=== PATIENT | male | born 1960 | race Two or more races ===

== ENCOUNTER → 2017-10-12 | Outpatient (CLI) | payer OTHER | LOC: CIMAGING 16:17 | PROVIDERS: ATTEND Family Medicine | DX: R07.9 Chest pain, unspecified (principal); M25.531 Pain in right wrist | CPT/HCPCS: 71046-PO; 73100-PO ==

== ENCOUNTER → 2017-12-27 | Outpatient (CLI) | payer OTHER | LOC: FIMAGING 07:55 | PROVIDERS: ATTEND Family Medicine | DX: M25.531 Pain in right wrist (principal); V89.2XXA Person injured in unspecified motor-vehicle accident, traffic, initial encounter; M87.9 Osteonecrosis, unspecified; S63.521A Sprain of radiocarpal joint of right wrist, initial encounter; T14.8XXA Other injury of unspecified body region, initial encounter; M77.8 Other enthesopathies, not elsewhere classified ==

== ENCOUNTER 2018-03-04 05:25 | Day surgery (SDC) | payer OTHER ==
[2018-03-04] MEDS ORDERED: LR 1,000 ML IV ONE (05:56)
[2018-03-04] MEDS ORDERED: ceFAZolin 2 GM in NS 100 ML IV ONE (06:53)
--- NOTE | 2018-03-04 06:54 | PDHPUP ---
History & Physical Update H&P update statement: This history and physical update is based on an assessment of the patient which was completed after admission or registration (within 24 hours), but prior to the surgery/procedure. H&P update: H&P reviewed & patient examined, no change in patient's condition since H&P completed
[2018-03-04] MEDS ORDERED: BUPIVACAINE 0.25% 30 ML SDV ONE (06:57)
[2018-03-04] MEDS ORDERED: LIDOCAINE 1% 300 MG/30 ML SDV ONE (06:57)
--- NOTE | 2018-03-04 06:57 | POSTOPPROG ---
Post Op Note Date of Operation: 03/04/18 Surgeon: Tyler Basurto Auto Damage Appraiser: None Anesthesiologist: Dr. Lugo Anesthesia: GET(General Endotracheal) Pre-op Diagnosis: Right wrist Kienbock's disease, right wrist TFCC tear Post-op Diagnosis: Right wrist Kienbock's disease, right wrist TFCC tear Indication: Right wrist Kienbock's disease, right wrist TFCC tear Procedure: Right wrist arthroscopy w/ TFCC debridement, right radius shortening Inf/Abcess present in the surg proc area at time of surgery?: No EBL: Minimal Complications: None
[2018-03-04] MEDS ORDERED: ceFAZolin 2 GM/DEXTROSE 100 ML IV ONE (07:00)
--- NOTE | 2018-03-04 07:02 | PDANEPAE ---
ANE Past Medical History - Cardiovascular History Hx Hypertension: Yes - Pulmonary History Hx Sleep Apnea: No - Endocrine History Hx Diabetes: Yes ANE Review of Systems Review of Systems: ANE Patient History - Allergies Allergies/Adverse Reactions: No Known Allergies Allergy (Verified 05/12/12 17:43) - Home Medications Home Medications: Lisinopril [Zestril 20 mg (RX)] 20 mg PO DAILY 05/12/12 [Last Taken 03/03/18] metFORMIN HCL [Glucophage 500 mg (RX)] 500 mg PO 05/12/12 [Last Taken 03/03/18 20:00] - NPO status NPO Since - Liquids (Date): 03/03/18 NPO Since - Liquids (Time): 21:30 NPO Since - Solids (Date): 03/03/18 NPO Since - Solids (Time): 18:00 ANE Labs/Vital Signs - Vital Signs Blood Pressure: 152/84 Heart Rate: 103 Respiratory Rate: 16 O2 Sat (%): 96 Height: 154.94 cm Weight: 66.224 kg ANE Physical Exam - Airway Mallampati Score: Class 2 - ASA Status ASA Status: III ANE Anesthesia Plan Anesthesia Plan: GA w LMA
[2018-03-04] MEDS ORDERED: MIDAZOLAM 2 MG/2 ML VIAL ONE (07:10)
[2018-03-04] MEDS ORDERED: METOCLOPRAMIDE 10 MG/2 ML VIAL ONE (07:11)
[2018-03-04] MEDS ORDERED: fentaNYL 100 MCG/2 ML INJ ONE ×2 (07:11→10:19)
[2018-03-04] MEDS ORDERED: PROPOFOL 200 MG/20 ML VIAL ONE (07:11)
[2018-03-04] MEDS ORDERED: LIDOCAINE 2% JELLY 5 ML TUBE ONE (07:12)
[2018-03-04] MEDS ORDERED: ONDANSETRON 4 MG/2 ML VIAL ONE (07:12)
[2018-03-04] MEDS ORDERED: PHENYLEPHRINE HCL 100 MCG/ML SYR ONE (07:56)
[2018-03-04] MEDS ORDERED: NALOXONE HCL 0.4 MG/ML INJ IVP PRN (10:10)
[2018-03-04] MEDS ORDERED: LR 500 ML IV PRN (10:10)
--- NOTE | 2018-03-04 10:11 | POSTANESTH ---
Post Anesthetic Evaluation Cardiovascular Status: Similar to Pre-Op Cond Respiratory Status: Normal, Stable Level of Consciousness/Mental Status: Can Participate in Eval Pain Control: Adequate, Prn Tx Ordered Nausea/Vomiting Control: Adequate, Prn Tx Ordered Complications Possibly Related to Anesthesia: None Noted
[2018-03-04] MEDS: fentaNYL 100 MCG/2 ML INJ IVP PRN ×2 (10:22→10:28)
[2018-03-04] MEDS ORDERED: oxyCODONE IR 5 MG TAB PO ONE ×2 (11:00→15:15)
[2018-03-04] MEDS ORDERED: LIDOCAINE 2% 5 ML SDV ONE (15:42)
[2018-03-04] MEDS ORDERED: ROPIVACAINE HCL 150 MG/30 ML INJ ONE (15:42)
[2018-03-04 16:40] VITALS: BP 165/100
--- NOTE | 2018-03-04 21:45 | GOP ---
[f rep st] OPERATIVE REPORT PATIENT: KENA SOARES DATE OF SERVICE: 03/04/18 PATIENT DATE OF : 1960 SURGEON: Tyler Basurto M.D. CUTTING MACHINE OFFBEARER: None ANESTHESIA: General / Regional anesthesia PRE-OPERATIVE DIAGNOSES: Right wrist Kienbocks disease (ICD-10 code M93.1 -- Kienbocks disease of adults) Right wrist triangular fibrocartilage complex tear (ICD-10 code M24.139 Triangular fibrocartilage complex tear) POST-OPERATIVE DIAGNOSES: Right wrist Kienbocks disease (ICD-10 code M93.1 -- Kienbocks disease of adults) Right wrist triangular fibrocartilage complex tear (ICD-10 code M24.139 Triangular fibrocartilage complex tear) Right wrist arthritis (ICD-10 code M19.131 Right wrist post-traumatic arthritis ) OPERATIVE PROCEDURES: CPT code 04198 -- Right wrist arthroscopy with triangular fibrocartilage complex debridement CPT code 64370 -- Right wrist arthroscopy with complete synovectomy CPT code 16442 Right distal radius osteotomy CPT code 96951 Right distal radius osteoplasty shortening CPT code 78759 Right distal radius open reduction and internal fixation CPT code 02099 Right wrist anterior interosseous nerve neurectomy CPT code 72813 Right wrist brachioradialis tenotomy CPT code 35109 - Fluoroscopy by surgeon, up to one hour CPT code 47177 - Application of a short-arm splint Modifier 47 - regional anesthesia by surgeon EBL: 3cc COMPLICATIONS: None TOURNIQUET TIME: 120 minutes at 250 mmHg IMPLANTS: Synthes 2.4mm/2.7mm volar variable angle LCP distal radius plate, four-hole shaft, wide, with 2.4mm non-locking and locking screws and 2.7mm non- locking screws BRIEF CLINICAL NOTE: This is a very pleasant 57 year old male with a significant history for a right wrist TFCC tear as well as right wrist Kienbock s disease in the setting of ulnar negative variance. As such, I discussed the risks, benefits, alternatives, and complications associated with both non- operative (specifically, observation, NSAIDs, bracing, injection) and operative (specifically, right wrist arthroscopy with TFCC debridement and/or repair and right distal radius osteotomy with osteoplasty shortening) forms of treatment. The patient fully understood the risks, benefits, alternatives, and complications associated with both forms of treatment and wished to proceed with operative intervention as outlined above. The patient has signed the informed consent form for surgery. OPERATIVE NOTE: On the day of surgery, all of the patients questions were answered. The patient was then transferred from the pre-operative area into the operating room and a formal, Time-Out procedure was performed. The patient was identified by name, medical record number, social security number, and date of . In addition, the patients right upper extremity was identified as the correct portion of the patients body for surgery with the patients right wrist being identified as the correct portion of that extremity for surgery. The anesthesia team administered pre-operative antibiotics for prophylaxis. The brachium was then padded with webril and tourniquet was applied. The right upper extremity was then prepped and draped in the normal sterile fashion. The right upper extremity was then placed into the [facility] wrist traction tower with padding overlying the ulnar nerve. Finger traps were applied to the index and long fingers and 12 pounds of traction was applied across the wrist. A sterile marking pen was then utilized to [place] out standard 3-4 and 6R radio- carpal portals. In addition, a volar longitudinal incision was marked overlying the flexor carpi radialis tendon extending to the volar wrist flexion crease. An Esmarch was then utilized to exsanguinate the upper extremity and the tourniquet was inflated to 250 mmHg. An 18-gauge needle was utilized to localize the radiocarpal joint through the 3- 4 portal. The joint was insufflated with several milliliters of sterile normal saline. A number 11-blade was then used to incise the skin only. A small hemostat was utilized to spread through the subcutaneous tissues and through the capsule to enter the radiocarpal space. The blunt obturator was then inserted with the overlying sheath. The blunt obturator was then removed and the 2.3-mm arthroscope was advanced through the sheath. The 6R portal was established with an outside-in technique and a diagnostic arthroscopy was performed in the radiocarpal space. The following structures were visualized and assessed arthroscopically: Radiocarpal Space Radioscapholunate: intact Short radiolunate: intact Long radiolunate: intact Radioscaphocapitate: intact Radial styloid and scaphoid facet of the distal radius: intact Intramembranous SLIL: intact Dorsal SLIL: intact Lunate facet of the distal radius: intact Ulnolunate: intact Ulnotriquetral: intact Triangular fibrocartilage complex: partial thickness central zone tear and partial thickness dorsal peripheral tear Lunate articular surface: full thickness cartilage defect along ulnar border measuring 3mm by 6mm Lunotriquetral interosseous ligament: intact Following completion of the diagnostic arthroscopy, a complete synovectomy of the wrist was performed with the 2.5mm aggressive shaver. Attention was then turned to the TFCC. The 2.5-mm shaver was utilized to debride the torn portions of the TFCC. Following this, a 1-mm 90-degree probe was utilized to test the periphery of the TFCC. The probe could not be advanced underneath the TFCC along its periphery. In addition, the trampoline test was negative. As such, the 2.3mm Mitek Vapr wedge electrode was utilized to perform thermal shrinkage of the debrided portions of the TFCC. The arthroscope and all instruments were then removed from the joint. The arthroscopy portal wounds were then copiously irrigated with sterile normal saline and the skin was re- approximated with 4-0 Monocryl. The right upper extremity was then taken out of the wrist traction tower and attention was turned to the distal radius. A #15 blade was then used to incise the skin overlying the flexor carpi radialis tendon. The flexor carpi radialis tendon, the median nerve, the radial artery, and the superficial branch of the radial sensory nerve were identified and protected. The flexor carpi radialis tendon sheath was then incised longitudinally and the tendon was retracted in an ulnar direction. The subsheath of the flexor carpi radialis tendon was then incised longitudinally to expose the flexor pollicus longus muscle belly and the pronator quadratus. The pronator quadratus was then released off of the radial margin of the volar distal radius. Next, the brachioradialis tendon was released off of the radial styloid (tenotomy). The pronator quadratus was then retracted in an ulnar direction to expose the volar surface of the distal radius. The anterior interosseous nerve was identified as it terminated in the pronator quadratus and a 1cm segment was excised utilizing bipolar cautery (anterior interosseous nerve neurectomy). Next, a four-hole wide Synthes 2.4/2.7 volar variable angle locking plate was applied to the volar aspect of the distal radius. The plate was temporarily held in place with two 0.045 C-wires. Next, PA and lateral radiographs C-arm radiographs were obtained which demonstrated appropriate positioning of the distal end of the plate. The most radial and distal screw and the most distal and ulnar screw hole were both filled with 2.4mm screws. A third locking 2.4mm screw was then inserted through a hole in the distal row of screw holes for additional fixation. A 0.035 C-wire was the inserted into the distal radius immediately proximal to the proximal row of screw holes at the distal end of the plate. This C-wire was introduced at an angle paralleling the normal volar tilt. Next, all three screws were then removed and the plate was removed and placed on the back table. A second 0.035 C-wire was then inserted in a volar to dorsal direction at the same angle as the first 0.035 C-wire to create two points of reference for the planned osteotomy. PA and lateral images were obtained which demonstrated appropriate positioning and trajectory for both C-wires. Baby Hohmann retractors were placed along the radial and ulnar aspects of the distal radius and a 1/2 inch sagittal saw was then utilized to perform an osteotomy at the level of the distal radial metaphysis maintaining the same angle which had been created by the two 0.035 C-wires. Before completing the first osteotomy cut, a second parallel osteotomy cut was started approximately 3 mm proximal to the first osteotomy cut. Both osteotomy cuts were not completed dorsally with the sagittal saw. Instead, a 1/2-inch osteotome was utilized to complete this portion of the osteotomies to avoid any injury to the extensor tendons. With both osteotomy cuts completed, soft tissue releases were then performed radially , ulnarly, and dorsally utilizing direct visualization and the wafer of bone between the two osteotomy cuts was excised in its entirety. The previously selected Synthes plate was then re-applied to the distal segment only and the three previously placed screws were reinserted into their respective screw holes. The plate was then used as a reduction tool to reposition the distal segment. Once the distal segment had been repositioned appropriately, it was held in place temporarily utilizing two 0.062 C-wires which were advanced through two of the holes in the proximal end of the plate. PA and lateral C-arm images were then obtained which demonstrated excellent compression across the osteotomy site in all views. The 2.0-mm drill bit was then used to drill a screw hole through the oblong hole in the proximal end of the plate into the distal radial shaft. A 2.7-mm fully threaded cortical screw was then inserted through the oblong hole in compression mode. The the remaining proximal screw holes were also filled with fully threaded 2.7mm cortical screws. The remaining distal screw holes were filled with 2.4-mm locking and non-locking screws. After placement of all screws, final PA, lateral, and oblique C-arm images were obtained which demonstrated an appropriate amount of shortening as well as excellent compression across the osteotomy site. All images also demonstrated appropriate implant positioning and length in all views. These images were printed and saved. The volar wound was then copiously irrigated with sterile normal saline mixed with bacitracin and polymixin. The pronator quadratus was repaired overlying the volar aspect of the plate with 3-0 Vicryl sutures. The subcutaneous plane was re-approximated with 3-0 Vicryl sutures and the skin was re-approximated with a running 4-0 Monocryl. Dermabond was applied to all incisions. A mixture of 1% lidocaine and 0.5% Marcaine was then utilized to provide local anesthesia at the operative sites. Xeroform gauze dressings were applied to all of the incisions followed by a dry sterile dressing and volar slab short- arm splint. Once the splint was completely in place, the tourniquet was deflated. After complete deflation of the tourniquet, all fingers and the thumb demonstrated brisk capillary refill. The patient was then reversed from anesthesia and transferred from the operating room table onto the post- operative gurney and transferred from the operating room to the post-anesthesia care unit in stable condition. POST-OPERATIVE PLAN: The patient will remain in the current splint and dressing for the next 2 weeks. I will see the patient back in the office in 2 weeks at which point the original splint and dressing will be removed, repeat wrist radiographs will be obtained, and the patient will be transitioned into a short-arm cast for 4 more weeks. /[id number]/MODL MTDD
== END 2018-03-04 16:50 | disposition home or self-care (01) ==
LOC: FSGY 05:25
PROVIDERS: ATTEND Orthopaedic Surgery Hand Surgery
DX: M93.1 Kienbock's disease of adults (principal); M24.131 Other articular cartilage disorders, right wrist; M25.831 Other specified joint disorders, right wrist; I10 Essential (primary) hypertension; E11.9 Type 2 diabetes mellitus without complications; V89.9XXS Person injured in unspecified vehicle accident, sequela
CPT/HCPCS: C1713; J0690; J2250; J2270; J2370; J2405; J2704; J2765; J2795; J3010